=== PATIENT | male | born 1970 | race Caucasian/White ===

== ENCOUNTER → 2024-08-28 11:31 | Outpatient (REF) | payer BC, SELFPAY | LOC: DHSLP 11:31 | PROVIDERS: ATTENDING PHYSICIAN Otolaryngology; FAMILY PHYSICIAN Internal Medicine | DX: G47.33 Obstructive sleep apnea (adult) (pediatric) (principal) | CPT/HCPCS: 95800 ==

== ENCOUNTER → 2024-09-12 08:54 | Outpatient (REF) | payer BC, SELFPAY | LOC: RCS 08:54 | PROVIDERS: ATTENDING PHYSICIAN Internal Medicine Cardiovascular Disease; FAMILY PHYSICIAN Internal Medicine | DX: R07.89 Other chest pain (principal); R94.31 Abnormal electrocardiogram [ECG] [EKG] | CPT/HCPCS: 93017; 93320; 93325; 93350 ==